=== PATIENT | male | born 1945 | race Caucasian/White ===

== ENCOUNTER 2018-01-03 10:48 | Emergency (ER) | payer OTHER ==
--- NOTE | 2018-01-03 11:07 | PDOC ---
History of Present Illness - General History Source: Old Records Exam Limitations: Other (Lethargic due to overdose) - History of Present Illness Initial Comments: 01/03/18 11:59 The patient is a 72-year-old male, with a significant past medical history of opioid abuse, who was sent to the ED after an opioid overdose today. As per EMS , the patient is homeless and was found in the back of a building. He received Narcan IV and intranasal Narcan while in route to the ED. <Afua Auguste - Last Filed: 01/03/18 11:58> <Arianna Lopez - Last Filed: 01/03/18 16:52> - General Chief Complaint: Overdose Stated Complaint: OVERDOSE Time Seen by Provider: 01/03/18 10:52 Past History <Afua Auguste - Last Filed: 01/03/18 11:58> <Arianna Lopez - Last Filed: 01/03/18 16:52> - Past Medical History Allergies/Adverse Reactions: Allergies Allergy/AdvReac Type Severity Reaction Status Date / Time No Known Allergies Allergy Verified 01/03/18 12:13 Home Medications: Ambulatory Orders NK [No Known Home Medication] 01/03/18 Review of Systems - Review of Systems Able to Perform ROS?: Yes Comments:: 01/03/18 11:59 Unable to obtain ROS. <Afua Auguste - Last Filed: 01/03/18 11:58> *Physical Exam - Vital Signs Last Vital Signs Temp Pulse Resp BP Pulse Ox 98.7 F 78 20 117/111 96 01/03/18 11:12 01/03/18 11:12 01/03/18 11:12 01/03/18 11:12 01/03/18 11:12 <Afua Auguste - Last Filed: 01/03/18 11:58> - Physical Exam Comments: GENERAL: Lethargic, awakens to noxious stimuli. In no acute distress HEAD: Small abrasions to R temporal area with mild erythema, no induration. Abrasions do not appear to be fresh (+signs of healing) EYES: Pupils are pinpoint and sluggishly reactive. EOMI, sclera anicteric, conjunctiva clear ENT: Auricles normal inspection, hearing grossly normal, nares patent, oropharynx clear without exudates. Moist mucosa NECK: Normal ROM, supple, no lymphadenopathy, JVD, or masses LUNGS: Breath sounds equal, clear to auscultation bilaterally. No wheezes, and no crackles HEART: Regular rate and rhythm, normal S1 and S2, no murmurs, rubs or gallops ABDOMEN: Soft, nontender, normoactive bowel sounds. No guarding, no rebound. No masses EXTREMITIES: Normal range of motion, no edema. No clubbing or cyanosis. No cords, erythema, or tenderness NEUROLOGICAL: Pupils sluggishly reactive. Moving all extremities. Limited by intox. SKIN: Warm, Dry, normal turgor, no rashes or lesions noted. <Arianna Lopez - Last Filed: 01/03/18 16:52> Procedures - Intubation Time of Intubation: 14:09 Intubation Method: orotracheal Blade used: Mac (3) Tube Size (Fr): 8.0 Medications: Etomidate, Succinylcholine Tube position @ lip (cm): 22 Tube position confirmed by: Direct visualization, CO2 detector, Breath sounds Breath Sounds after Intubation: right greater than left (tube repositioned, now with B/L sounds) Intubation Complications: oral-unsuccessful attempt (second attempt successful) <Arianna Lopez - Last Filed: 01/03/18 16:52> Heart Score/ECG Review - ECG Impressions Comment:: EKG read 12:06- Sinus rhythm with 1st deg AV block, 94 bpm, RBBB, ST dep V3 <Arianna Lopez - Last Filed: 01/03/18 16:52> ED Treatment Course - LABORATORY CBC & Chemistry Diagram: 01/03/18 12:06 01/03/18 12:06 <Arianna Lopez - Last Filed: 01/03/18 16:52> Medical Decision Making - Critical Care Time Total Critical Care Time (minutes): 45 Critical Care Statement: The care of this patient involved high complexity decision making to prevent further life threatening deterioration of the patient 's condition and/or to evaluate & treat vital organ system(s) failure or risk of failure. - Medical Decision Making 01/03/18 13:06 Contacted by radiology, patient with large intraparenchymal hemorrhage. Neuro exam unchanged. Patient with decreased gag reflex, will plan to intubate to prevent aspiration. 01/03/18 13:37 Contacted by patient's niece (Anais), who thought he was at [place]. She was able to clarify past history, as it was extremely limited from EMS. She informed me that he has history of alcohol abuse, possibly drug use with his significant other. He was found down by his sister this morning on their afternoon, she called EMS. They had suspected that he was intoxicated. No known history of any blood thinners. I explained that he is in critical condition, she is leaving work to come to ED now. 01/03/18 14:02 Pt intubated successfully. See procedure note for details. Niece en route. 01/03/18 14:11 Accepted to [facility] by Dr. De La Rosa. Requested goal SBP 130. 01/03/18 14:31 Patient's sister and niece (different niece, Anais is still en route) at bedside. I explained patient's current state. EMS en route to transport to [facility]. Patient with purulent aspirate from ETT. Will cover with zosyn. 01/03/18 15:08 Tube placement verified on XR. <Arianna Lopez - Last Filed: 01/03/18 16:52> *DC/Admit/Observation/Transfer - Attestations Scribe Attestion: 01/03/18 12:06 Documentation prepared by Afua Auguste, acting as medical billing representative for Arianna Lopez MD. <Afua Auguste - Last Filed: 01/03/18 11:58> - Transfer to Acute Care Facility Receiving Facility: [facility]. Accepting Physician:: Dr. De La Rosa <Arianna Lopez - Last Filed: 01/03/18 16:52> Diagnosis at time of Disposition: Intraparenchymal hemorrhage of brain - Discharge Dispostion Disposition: TRANSFER ACUTE CARE/OTHER HOSP Condition at time of disposition: Critical
[2018-01-03 11:16] VITALS: BMI 29.8
[2018-01-03 12:44] LABS: BASO % 0.3 % (0-2.0); HEMATOCRIT 50.9 % (35.4-49); HEMOGLOBIN 17.1 GM/dL (11.7-16.9); INR 1.21 (0.82-1.09); LYMPH % 5.2 % (8-40); MCH 29.7 pg (25.7-33.7); MCHC 33.7 g/dl (32.0-35.9); MEAN CELL VOLUME 88.4 fl (80-96); MEAN PLT VOLUME 8.9 fl (7.5-11.1); MONO % 7.7 % (3.8-10.2); NEUT % 86.8 % (42.8-82.8); PLATELET COUNT 222 K/MM3 (134-434); PROTHROMBIN TIME (PATIENT) 13.7 SEC (9.7-13.0); RBC 5.76 M/mm3 (4.00-5.60); RDW 15.6 % (11.9-15.9); WHITE BLOOD COUNT 17.6 K/mm3 (4.0-10.0)
[2018-01-03] MEDS ORDERED: RAPID SEQUENCE INTUBATION KIT NR ONE ×2 (12:51→12:52)
[2018-01-03 12:58] LABS: CHLORIDE 96 mmol/L (98-107); SODIUM 134 mmol/L (136-145)
[2018-01-03 13:15] LABS: ALK PHOS 112 U/L (45-117); ANION GAP 11 (8-16); BILIRUBIN,TOTAL 1.1 mg/dL (0.2-1.0); BLOOD UREA NITROGEN 18 mg/dL (7-18); CALCIUM 8.7 mg/dL (8.5-10.1); CO2 27 mmol/L (21-32); CREATININE 0.7 mg/dL (0.7-1.3); GLUCOSE,RANDOM 139 mg/dL (74-106); SGOT/AST 61 U/L (15-37); SGPT/ALT 18 U/L (12-78); TOT PROT 8.6 g/dl (6.4-8.2)
[2018-01-03] MEDS ORDERED: NICARDIPINE 25 MG in DEXTROSE 5%-WATER - 240 ML IVPB SCH (13:15)
[2018-01-03] MEDS ORDERED: PROPOFOL 1,000,000 MCG/100 ML VIAL ONE (14:01)
[2018-01-03] MEDS ORDERED: levETIRAcetam 500 MG/5 ML INJECTION VIAL IVPB ONE ×2 (14:03→15:11)
[2018-01-03] MEDS ORDERED: PROPOFOL 200 MG/20 ML VIAL IVPUSH ONE (14:03)
[2018-01-03] MEDS ORDERED: ETOMIDATE 20 MG/10 ML AMPUL IVPUSH ONE (14:07)
[2018-01-03] MEDS ORDERED: SUCCINYLCHOLINE CHLORIDE 200 MG/10 ML VIAL IVPUSH ONE (14:07)
[2018-01-03] MEDS ORDERED: PROPOFOL 1,000,000 MCG/100 ML VIAL IVPB SCH (14:15)
[2018-01-03] MEDS ORDERED: SODIUM CHLORIDE 1,000 ML IV SCH (14:15)
[2018-01-03] MEDS ORDERED: PIPERACILLIN/TAZOB 3.375 GM 3.375 GM/50 ML BAG IVPB ONE (14:31)
[2018-01-03] MEDS ORDERED: PIPERACILLIN/TAZOB 3.375 GM 3.375 GM in DEXTROSE 5%-WATER - 50 ML IVPB ONE (14:32)
[2018-01-03] MEDS ORDERED: SODIUM CHLORIDE 1,000 ML IV STA (14:53)
[2018-01-03] MEDS ORDERED: MIDAZOLAM 100 MG in SODIUM CHLORIDE 100 ML IVPB SCH (15:00)
[2018-01-03 16:01] VITALS: BP 100/79; PULSE 113
[2018-01-03 16:09] VITALS: TEMP 97.9
--- NOTE | 2018-01-03 16:32 | EKG ---
Test Reason : Blood Pressure : / mmHG Vent. Rate : 094 BPM Atrial Rate : 094 BPM P-R Int : 266 ms QRS Dur : 130 ms QT Int : 524 ms P-R-T Axes : 073 106 065 degrees QTc Int : 655 ms SINUS RHYTHM WITH 1ST DEGREE A-V BLOCK RIGHT ATRIAL ENLARGEMENT RIGHT BUNDLE BRANCH BLOCK ABNORMAL ECG NO PREVIOUS ECGS AVAILABLE Confirmed by RICHARD RAMON, HERNANDO ([id number]) on 01/03/2018 4:31:37 PM Referred By: Confirmed By:HERNANDO RAMOS MD
== END 2018-01-03 16:01 | disposition short-term general hospital (02) ==
LOC: JER 10:48
PROC: 0CHY7BZ Insertion of Airway into Mouth and Throat, Via Natural or Artificial Opening (ICD-10-PCS; principal; 2018-01-03)
PROC: 3E03329 Introduction of Other Anti-infective into Peripheral Vein, Percutaneous Approach (ICD-10-PCS; 2018-01-03)
PROC: 3E033GC Introduction of Other Therapeutic Substance into Peripheral Vein, Percutaneous Approach (ICD-10-PCS; 2018-01-03)
PROC: 3E0337Z Introduction of Electrolytic and Water Balance Substance into Peripheral Vein, Percutaneous Approach (ICD-10-PCS; 2018-01-03)
DX: T40.2X1A Poisoning by other opioids, accidental (unintentional), initial encounter (principal); I61.8 Other nontraumatic intracerebral hemorrhage; Z59.0 Homelessness; F10.20 Alcohol dependence, uncomplicated
CPT/HCPCS: 36415; 42999; 70450-TC; 71045-TC-FY; 80053; 82550; 82553; 84443; 84484; 85025; 85610; 93005; 93010; 96361; 96365; 96375; 99285-25; J7030